=== PATIENT | male | born 1945 | race Caucasian/White ===

== ENCOUNTER → 2017-01-18 | Outpatient (CLI) | payer MEDICARE, OTHER ==
[2017-01-18 10:58] LABS: CHLORIDE,CL 106 mmol/L (98-110); SODIUM,NA 138 mmol/L (136-146)
== END ==
LOC: MW.CHFP 10:18
PROVIDERS: ATTEND Emergency Medicine
DX: I10 Essential (primary) hypertension (principal); E78.00 Pure hypercholesterolemia, unspecified; E11.9 Type 2 diabetes mellitus without complications; Z79.4 Long term (current) use of insulin; M19.90 Unspecified osteoarthritis, unspecified site; E11.40 Type 2 diabetes mellitus with diabetic neuropathy, unspecified
CPT/HCPCS: 36415; 80053; 80061; 82044; 83036; 99214

== ENCOUNTER 2022-04-02 06:08 | Emergency (ER) | payer MEDICARE, OTHER ==
[2022-04-02] MEDS ORDERED: Lidocaine/Epineph/Tetracaine 3 ML Syringe TOP ONE (06:39)
[2022-04-02] MEDS ORDERED: Ketorolac 30 MG/ML SDV IM ONE (06:39)
== END 2022-04-02 06:56 | disposition home or self-care (01) ==
LOC: MW.ED 06:08
DX: M79.672 Pain in left foot (principal); Z88.2 Allergy status to sulfonamides
CPT/HCPCS: 96372; 99283; A9270; J1885